=== PATIENT | female | born 2000 | race Caucasian/White ===

== ENCOUNTER 2021-07-12 08:58 | Outpatient (AMBR) | payer MEDICAID, SELFPAY ==
--- NOTE | 2021-07-09 16:10 | PT.OIERPT ---
PT OP Initial Eval Patient Information Visit Reasons: LBP W/RIGHT SIDE SCIATICA Medical Diagnosis: M54.41 Treatment Dx #1: Back Pain Treatment Dx #2: L/S Mobility Deficits Start of Care: 07/09/21 Initial Assessment Subjective Pt is a 21 y/o female c/o chronic back pain (01/20) with right LE numbness and tingling started a few years ago. Pt was diagnosed with ankylosis spondylitis since age 13. Pt has limitation with sitting, standing, walking, chores, cooking, cleaning, self care, recreational activities, and driving. Objective L/S AROM: all motions are WFL except extension and left sidebending Hip PROM: all motions are WFL Hip MMTs Glute Med: 3/5 Glute Max: 3/5 Special Test (+) L/S quadrant Muscle Length: Hs tightness L>R Assessment Pt demonstrate back pain with mobility deficits leading to decline function and difficulty with ADLs. Pt will attempt physical therapy if pain persist Pt will be refer back to provider for further consultation Short Term and [employer] Goals 1) Increase L/S AROM WFL in 6 wks to be able to perform chores 2) Decrease back pain to 2/10 in 6 wks to be able to perform recreational activities 3) Increase hip MMTs grossly to 4-/5 in 6 wks to be able to perform self care activities 4) Increase core strength WFL in 6 wks to be able to perform lifting activities 5) Indep with Hep Treatment Plan 1) Manual Therapy 2) Therapeutic Activities 3) Therapeutic Exercises 4) Modalities (ice, heat) Frequency and Duration 2 x wk for 6 wks Certification Dates: 07/09/21 to 10/07/21 Office Procedures PT Treatments PT Date of Service: 07/09/21 OP PT Eval Mod Complex 30 minutes: Yes
--- NOTE | 2021-07-12 09:56 | PT.ODAYNRPT ---
PT Outpatient Daily Note Date of Service: 07/12/21 OP Daily Note Visit Reasons: LBP W/RIGHT SIDE SCIATICA Outpatient Physical Therapy Treatment Date: 07/12/21 Subjective: Pt's back feels the same. Still has pain down the hip. Objective: Please see flow chart for list of ther ex performed Assessment: tolerate exercises with minimal pain Plan: Continue with PT Length of Time (minutes) of Treatment: 30 Minutes Office Procedures PT Treatments PT Date of Service: 07/12/21 Therapeutic Exercise 30 minutes: Yes PT Treatments PT Date of Service: 07/09/21 OP PT Eval Mod Complex 30 minutes: Yes
== END 2021-07-13 23:59 | disposition home or self-care (01) ==
PROVIDERS: PCP Internal Medicine Rheumatology; Referring Provider Internal Medicine Rheumatology; Visit Provider Internal Medicine Rheumatology
DX: M54.41 Lumbago with sciatica, right side (principal); G89.29 Other chronic pain; R26.2 Difficulty in walking, not elsewhere classified; R20.0 Anesthesia of skin; R20.2 Paresthesia of skin
CPT/HCPCS: 97110; 97162